=== PATIENT | female | born 1995 | race Caucasian/White ===

== ENCOUNTER 2019-10-15 21:32 | Emergency (ER) | payer OTHER, SELFPAY ==
--- NOTE | ~2019-10-15 | XR_ITS ---
XR chest 2V DATE: 10/15/2019 22:27 INDICATION: Cough, congestion for 3 days TECHNIQUE: PA and lateral views COMPARISON: None FINDINGS: Mild patchy infiltrate is suggested in the right lower lobe. The lungs otherwise appear nini ar. No pleural effusion or pulmonary vascular congestion or pneumothorax. Normal heart size. No hilar or mediastinal enlargement. IMPRESSION: Mild patchy right lower lobe infiltrate Dr. Brooks notified emergency room physician Dr. Beltran of the patchy right lower lobe infiltrate in pe rson in the emergency room on 10/16/2019 at 1400 hours Reviewed, dictated and finalized at location A. IMPRESSION: Mild patchy right lower lobe infiltrate Dr. Brooks notified emergency room physician Dr. Beltran of the patchy right lower lobe infiltrate in person in the emergency room on 10/16/2019 at 1400 hours
[2019-10-15 21:34] VITALS: PULSE 97; RESP 20; TEMP 36.7; O2SAT 99
--- NOTE | 2019-10-15 21:50 | ED.URI ---
HPI - URI/Sore Throat General Chief Complaint: Upper Respiratory Infection Stated Complaint: cough/congestion Time Seen by Provider: 10/15/19 21:42 Source: patient and RN notes reviewed Mode of arrival: ambulatory Limitations: no limitations History of Present Illness HPI Narrative: A 24 y/o female presents to the ED with a constant dry cough for the past 5 days. She reports associated nasal congestion, rhinorrhea, and CP with inspiration. She denies any fevers, chills, SOB, sore throat, N/V/D, or ABD pain. MD elicited complaint: cough (dry) Onset (ago): day(s) (5) Consistency: constant Associated symptoms: rhinorrhea, nasal congestion and chest pain (with inspiration) Related Data Allergies Allergy/AdvReac Type Severity Reaction Status Date / Time No Known Allergies Allergy Verified 10/15/19 21:35 Review of Systems Review of Systems: All systems reviewed & are unremarkable except as noted in HPI and below Constitutional: Constitutional: Denies chills and Denies fever(s) ENT: Reports nasal congestion, Reports nasal discharge and Denies sore throat Respiratory: Respiratory: Reports cough (dry), Reports pain on inspiration (CP) and Denies dyspnea Gastrointestinal: Gastrointestinal: Denies abdominal pain, Denies diarrhea, Denies nausea and Denies vomiting PMFSH Past Medical History Medical History (Updated 10/15/19 @ 23:30 by Saida Grayson MD) Healthy female Surgical History Surgical History (Updated 10/15/19 @ 22:00 by Felix Daigle) No history of previous surgery Social History Social History (Updated 10/15/19 @ 22:00 by Felix Daigle) Smoking status: Never smoker Gender identity (if verbalized by the patient): Female Exam Const: General: cooperative, no acute distress and alert Nutritional Appearance: well nourished Orientation/consciousness: patient oriented x3 Limitations: no limitations HENMT: Mouth: Yes lip normal and Yes moist mucous membranes Resp: Effort & Inspection: normal respiratory effort Auscultation: rhonchi (rare scattered but mostly clear) Cardio: Rate: regular rate Rhythm: regular rhythm GI: GI Palp: Yes Soft to palpation and No Tenderness to palpation present (GI) Auscultation: normal bowel sounds Skin: General skin exam: normal color Neuro: General: patient oriented x3 Cognition (Neuro): normal cognition Speech: normal speech Extrem: General: normal to inspection, full ROM and no clubbing, cyanosis or edema Psych: Mental Status: mental status grossly normal Affect: normal affect Attitude: cooperative Course Course Emergency Course: Influenza testing negative. Chest x-ray unremarkable. Patient clinical picture consistent with upper respiratory infection. Patient will be prescribed inhaler to use to help with cough. Recommended [id number] mucolytic's and cough suppressant to take as needed. Advised primary care follow-up. Vital Signs Vital signs: Vital Signs Temperature 98.0 F 10/15/19 21:34 Pulse Rate 97 10/15/19 21:34 Respiratory Rate 20 10/15/19 21:34 Pulse Oximetry 99 10/15/19 21:34 Temperature 98.0 F 10/15/19 21:34 Pulse Rate 97 10/15/19 21:34 Respiratory Rate 20 10/15/19 21:34 Pulse Oximetry 99 10/15/19 21:34 MDM - URI/Sore Throat Lab Data Attestation: I reviewed the patient's lab results. Labs: Influenza A Screen Negative Reference Range: Negative Influenza A Screen Negative Reference Range: Negative Influenza B Screen Negative Reference Range: Negative Influenza B Screen Negative Reference Range: Negative Imaging Data Attestation: I personally reviewed and interpreted this imaging study as follows: My impression: CXR: No acute abnormality Critical Care Time Critical Care Time Critical Care Time: No Discharge Plan Discharge Clinical Impression: Upper respiratory infection Qualifiers: URI type: unspecified URI [place]
--- NOTE | 2019-10-15 23:30 | PC.NURSE ---
Patient medically cleared per verbal order from Dr Grayson.
[2019-10-15 23:40] VITALS: BP 136/80; PULSE 89; RESP 18; O2SAT 98
== END 2019-10-15 23:41 | disposition home or self-care (01) ==
PROVIDERS: Emergency Provider Emergency Medicine
DX: J06.9 Acute upper respiratory infection, unspecified (principal)
CPT/HCPCS: 71046; 87804; 99283